=== PATIENT | female | born 1960 | race Two or more races ===

== ENCOUNTER 2023-08-18 20:13 | Emergency (ER) | payer OTHER ==
[~2023-08-18] VITALS: Ht 160 cm; Wt 72.6 kg
[~2023-08-18 20:13] MED LIST: CIPRO500 MG PO; DICY20TA PO; FLAGYL500MG PO; INTESTINEX1 CA1 PO
[2023-08-18] MEDS ORDERED: KETOROLAC TROMETHAMINE 60 MG VIAL IM ONE (21:30)
[2023-08-18] MEDS ORDERED: DICLOFENAC SODI75 MG PO (21:53)
== END 2023-08-18 22:26 | disposition home or self-care (01) ==
LOC: ER 20:14
DX: S83.8X1A Sprain of other specified parts of right knee, initial encounter (principal); X50.1XXA Overexertion from prolonged static or awkward postures, initial encounter; Y93.89 Activity, other specified; Y92.89 Other specified places as the place of occurrence of the external cause

== ENCOUNTER 2024-08-11 20:36 | Inpatient (IN) | payer OTHER ==
[~2024-08-11] VITALS: Ht 162.6 cm; Wt 72.6 kg
[~2024-08-11 20:36] MED LIST changes: +DICLOFENAC SODI75 MG PO
--- NOTE | 2024-08-11 21:00 | NUR ---
PTE ALERTA Y ORIENTADA X3 REFIERE VENIR POR DOLOR EPIGASTRICO DESDE HOY POR LA TARDE. ESTA REFIERE 3 VOMITOS Y MUCHAS NAUSEAS.
[2024-08-11] MEDS ORDERED: HYOSCYAMINE SULFATE 0.125 MG TAB.SUBL SL ONE (22:45)
--- NOTE | 2024-08-11 23:07 | NUR ---
SE EJECUTAN ORDENES MEDICAS EN NICOLE TOTALIDAD.
[2024-08-11 23:14] LABS: HEMATOCRIT 37.7 % (36.0-45.00); HEMOGLOBIN 12.8 g/dL (12.0-15.00); MEAN CELL VOLUME 85.2 fL (80.00-100.00); MEAN CORPUSCULAR HEMOGLOBIN 28.9 pg (27.00-32.0); MEAN CORPUSCULAR HGB CONC 33.9 g/dl (32.0-36.0); PLATELET COUNT 223 K/uL (150-450); RED BLOOD COUNT 4.42 M/uL (4.00-6.00); RED CELL DISTRIBUTION WIDTH 14.1 % (11.5-14.5)
[2024-08-11 23:38] LABS: ALBUMIN 3.6 gm/dL (3.4-5.0); BILIRUBIN TOTAL 1.28 mg/dL (0.3-1.2); CALCIUM 9.1 mg/dL (8.5-10.1); CREATININE SERUM 0.93 mg/dL (0.55-1.02); GFR 61.09; GLOBULINA 3.2 G/DL (2.4-3.5); POTASSIUM 3.8 mEq/L (3.5-5.1); TOTAL PROTEIN 6.8 gm/dL (6.4-8.2)
[2024-08-11 23:53] LABS: URINE APPEARANCE Clear; URINE BILIRRUBIN Small (NEGATIVE); URINE BLOOD Negative; URINE COLOR Dark Yellow; URINE GLUCOSE Negative (NEGATIVE); URINE KETONE Trace (NEGATIVE); URINE LEUKOCYTE Trace; URINE NITRATE Negative; URINE PROTEIN 30 (NEGATIVE)
[2024-08-11 23:57] LABS: URINE EPITHELIAL CELLS 50.9 uL (0.0-38.8); URINE RBC 216.9 uL (0.0-20.8); URINE WBC 48.9 uL (0.0-23.2)
--- NOTE | 2024-08-12 00:02 | NUR ---
SE NOTIFICA SONOGRAMA ABDOMINAL A SONOGRAFISTA DE TURNO MALYORIE A LAS 12:05AM
[2024-08-12] MEDS ORDERED: FAMOTIDINE/PF 20 MG in 0.9 % SODIUM CHLORIDE 8 ML IV PUSH STA (03:10)
[2024-08-12] MEDS ORDERED: KETOROLAC TROMETHAMINE 30 MG VIAL IV ONE (03:15)
[2024-08-12] MEDS ORDERED: 0.9 % SODIUM CHLORIDE 1,000 ML IV SCH (03:15)
--- NOTE | 2024-08-12 04:01 | NUR ---
SE REALIZA PROCESO DE VENOPUNCION PARA OBTENER ACCESO VENOSO PARA ADMINISTRACION DE IV FLUIDS
--- NOTE | 2024-08-12 07:13 | NUR ---
SE RECIBE A PACIENTE ALERTA Y ORIENTADA X3 EN CAMA A NIVEL DE PISO JUNTO CON BARRANDAS ELEVADAS. CANALIZADA CON #24 EN LT ARM BAJANDO 0.9NSS A 120ML/HR. PENDIENTE A RESULTADOS DE LABORATORIOS Y CONSULTA CON CIRUGIA.
[2024-08-12] MEDS ORDERED: PIPERACILLIN/TAZOBACTAM SODIUM 3.375 GM in 0.9 % SODIUM CHLORIDE 100 ML IV SCH ×2 (07:18→18:00)
[2024-08-12 07:42] LABS: INR 1.01; PARTIAL THROMBOPLASTIN TIME 24.5 SECONDS (22.0-34.0)
[2024-08-12] MEDS ORDERED: PANTOPRAZOLE SODIUM 40 MG/VIAL VIAL IV SCH (12:20)
[2024-08-12] MEDS ORDERED: ONDANSETRON HCL 4 MG in 0.9 % SODIUM CHLORIDE 50 ML IV PRN (12:30)
[2024-08-12] MEDS ORDERED: RINGERS SOLUTION,LACTATED 1,000 ML IV SCH (12:30)
[2024-08-12] MEDS ORDERED: KETOROLAC TROMETHAMINE 30 MG VIAL IV PRN (12:30)
[2024-08-12 12:49] VITALS: BP 162/87
[2024-08-12 12:50] VITALS: BP 162/87
[2024-08-12 17:22] VITALS: BP 147/77
[2024-08-13 01:27] VITALS: BP 142/74; O2SAT 96
[2024-08-13 06:24] LABS: HEMOGLOBIN 12.6 g/dL (12.0-15.00); MEAN CELL VOLUME 85.5 fL (80.00-100.00); MEAN CORPUSCULAR HEMOGLOBIN 29.1 pg (27.00-32.0); PLATELET COUNT 155 K/uL (150-450); RED BLOOD COUNT 4.33 M/uL (4.00-6.00); RED CELL DISTRIBUTION WIDTH 14.2 % (11.5-14.5)
[2024-08-13 07:00] LABS: ALBUMIN 3.3 gm/dL (3.4-5.0); BILIRUBIN TOTAL 0.86 mg/dL (0.3-1.2); CALCIUM 8.8 mg/dL (8.5-10.1); GFR 56.18; GLOBULINA 2.6 G/DL (2.4-3.5); MAGNESIUM 2.2 mg/dL (1.8-2.4); PHOSPHOROUS 3.9 mg/dL (2.5-4.9); POTASSIUM 3.91 mEq/L (3.5-5.1); TOTAL PROTEIN 5.9 gm/dL (6.4-8.2)
[2024-08-13 07:44] VITALS: BP 153/79
[2024-08-13] MEDS ORDERED: BUPIVACAINE HCL/PF 0.25% 30ML VIAL InF ONE (21:15)
[2024-08-13] MEDS ORDERED: MORPHINE SULFATE 4 MG/ML VIAL IV ONE ×2 (22:00→22:30)
[2024-08-14 04:37] VITALS: O2SAT 100
[2024-08-14 04:55] LABS: HEMATOCRIT 37.6 % (36.0-45.00); HEMOGLOBIN 12.8 g/dL (12.0-15.00); MEAN CELL VOLUME 84.9 fL (80.00-100.00); MEAN CORPUSCULAR HEMOGLOBIN 28.9 pg (27.00-32.0); PLATELET COUNT 197 K/uL (150-450); RED BLOOD COUNT 4.43 M/uL (4.00-6.00); RED CELL DISTRIBUTION WIDTH 14.1 % (11.5-14.5)
[2024-08-14 05:17] LABS: ALBUMIN 3.2 gm/dL (3.4-5.0); BILIRUBIN TOTAL 0.49 mg/dL (0.3-1.2); CALCIUM 8.7 mg/dL (8.5-10.1); CREATININE SERUM 0.74 mg/dL (0.55-1.02); GFR 79.52; GLOBULINA 2.8 G/DL (2.4-3.5); POTASSIUM 4.45 mEq/L (3.5-5.1)
[2024-08-14 08:05] VITALS: BP 124/78
[2024-08-14] MEDS ORDERED: CELEBREX200MG PO (14:09)
[2024-08-14] MEDS ORDERED: PROTONIX20 MG PO (14:09)
[2024-08-14] MEDS ORDERED: COLACE100 MG PO (14:12)
== END 2024-08-14 14:35 | disposition home or self-care (01) | DRG 419 ==
LOC: ER 20:39 → MEDI 08-12 12:34
PROVIDERS: Emergency Medicine; Obstetrics & Gynecology; ADMIT Internal Medicine; ATTEND Internal Medicine
PROC: BF37ZZZ Magnetic Resonance Imaging (MRI) of Pancreas (ICD-10-PCS; 2024-08-12)
PROC: BF13YZZ Fluoroscopy of Gallbladder and Bile Ducts using Other Contrast (ICD-10-PCS; 2024-08-13)
PROC: 0FT44ZZ Resection of Gallbladder, Percutaneous Endoscopic Approach (ICD-10-PCS; principal; 2024-08-13 16:00)
DX: K81.1 Chronic cholecystitis (principal); K83.8 Other specified diseases of biliary tract; R10.9 Unspecified abdominal pain